=== PATIENT | female | born 1985 | race American Indian/Alaskan Native ===

== ENCOUNTER 2017-06-21 05:49 | Day surgery (SDC) | payer MEDICAID ==
[2017-06-06 14:26] VITALS: BMI 32.5
[2017-06-21] MEDS ORDERED: Clindamycin 600mg/50ml NS 600 MG/50 ML BAG IVPB ONE (07:28)
[2017-06-21] MEDS ORDERED: Lidocaine 2% w Epi 1:100,000 Inj IJ ONE (07:29)
[2017-06-21] MEDS ORDERED: EPINEPHrine 1:1000 Nasal Sol(30mL) ONE ×2 (07:29→08:55)
[2017-06-21] MEDS ORDERED: Lactated Ringer's 1,000 ML IV ONE ×2 (07:45→09:17)
[2017-06-21] MEDS ORDERED: Midazolam 2 MG/2 ML VIAL ONE (07:49)
[2017-06-21] MEDS ORDERED: Propofol 10 mg/ml Inj (20 ML) ONE (07:49)
[2017-06-21] MEDS ORDERED: Dextrose 5%/0.45% NS 1,000 ML IV SCH (08:00)
[2017-06-21] MEDS ORDERED: Acetaminophen-Codeine 300/30 mg Tab PO PRN (08:00)
[2017-06-21] MEDS ORDERED: Rocuronium 10 mg/ml (5 ml) ONE (08:11)
[2017-06-21] MEDS ORDERED: Neostigmine Methylsulfate 3mg/3ml Syringe IV ONE (09:16)
[2017-06-21] MEDS: HYDROmorphone 0.5 mg/0.5 ml ISec IVP PRN ×2 (09:45→10:15)
[2017-06-21] MEDS ORDERED: Albuterol 0.083% Inhal Sol (2.5 mg/3 mL) UD INH PRN (10:00)
[2017-06-21] MEDS ORDERED: Dexamethasone 4 mg/1 ml IVP PRN (10:00)
[2017-06-21 12:12] VITALS: BP 144/81; PULSE 73; RESP 18; TEMP 98; O2SAT 98
--- NOTE | 2017-06-21 17:34 | OP ---
PROCEDURE DATE: 06/21/2017 PREOPERATIVE DIAGNOSES: Sinusitis and nasal polyposis. POSTOPERATIVE DIAGNOSES: Sinusitis and nasal polyposis. PROCEDURE: Endoscopic bilateral maxillary antrostomy, endoscopic bilateral ethmoidectomy, endoscopic bilateral frontal sinusotomy, endoscopic sphenoidotomy, and left nasal turbinate reduction, endoscopic. SURGEON: Tomas Fritz MD SIGNIFICANT FINDINGS: Nasal polyps noted in ethmoid sinuses, maxillary antrum stenosed by polyps on both sides, frontal recess stenosed on both sides. DESCRIPTION OF PROCEDURE: The patient was brought into the room, placed in the supine position, anesthesia was initiated through an ET tube. Navigation was set up and used throughout the case in order to ensure that the skull base and orbit were not entered. Adrenaline soaked pledgets were inserted into the nasal cavity that remained there for 5 minutes and removed. The patient was draped in the usual manner. The 0-degree scope was inserted into the left nasal cavity. Polyps were noted emanating from the middle meatus and injected with lidocaine with epinephrine. The debrider was used to debride the polyps emanating from the middle meatus. The uncinate process was medialized using a freer elevator and removed using the debrider. A debrider was used to enter the ethmoid bulla inferomedially. Dissections were done posteriorly to the basal lamella, then anteriorly and superiorly until the ethmoid bulla was removed. The basal lamella was entered. Posterior ethmoid cells were entered and opened, skull base was identified and followed anteriorly all the way to the area of the anterior ethmoid air cells. The frontal recess was noted to be stenosed and opened using forceps. The sphenoid antrum was noted to be stenosed and opened using forceps and maxillary antrum was noted to be stenosed and opened using forceps. Attention was turned to the other side. The polyps were noted to be emanating from the middle meatus and injected with lidocaine with epinephrine. They were then removed with the debrider. The uncinate process was medialized using freer elevator and removed. The debrider was used to enter the ethmoid bulla inferomedially going posteriorly to the basal lamella, then anteriorly and superiorly until the ethmoid bulla was removed. The basal lamella was entered. The posterior ethmoid cells were entered and opened. The skull base was identified and followed anteriorly all the way to the area of the anterior ethmoid air cells. The frontal recess was noted to be stenosed and opened using forceps. The sphenoid antrum was noted to be stenosed and opened using forceps. Maxillary antrum was noted to stenosed and opened using forceps. Bleeding was controlled using adrenaline soaked pledgets and suction cautery. At that point, it was noted that left middle turbinate was floppy and had no integrity, therefore it was reduced in size using a debrider. A suction cautery was used to control the bleeding. A splint was placed on the right. The patient was taken off anesthesia and taken to recovery room in a stable manner. Tomas Fritz MD MTDD
== END 2017-06-21 13:44 | disposition home or self-care (01) ==
LOC: C.SDS 05:49
PROVIDERS: ATTEND Otolaryngology
DX: J32.0 Chronic maxillary sinusitis (principal); J32.1 Chronic frontal sinusitis; J32.2 Chronic ethmoidal sinusitis
CPT/HCPCS: 30140; 31254; 31256; 31287; 88304; J1170; J2001; J2250; J2405; J2704; J2710; J2765; J3010; J7120

== ENCOUNTER 2018-05-06 05:26 | Emergency (ER) | payer SELFPAY ==
[2018-05-06 05:27] VITALS: BMI 32.5
--- NOTE | 2018-05-06 05:38 | C.PDOC ---
History Of Present Illness 32 year old female presents to the ED c/o right shoulder pain. Patient states she had previous shoulder dislocations and tonight she felt her shoulder pop out and she popped it back in. Patient's right shoulder is in place right now. Patient denies injury, fall, trauma, weakness, numbness, CP, SOB. Time Seen by Provider: 05/06/18 05:36 Chief Complaint (Nursing): Upper Extremity Problem/Injury Past Medical History Vital Signs: Last Vital Signs Temp 98.1 F 05/06/18 05:34 Pulse 86 05/06/18 05:34 Resp 16 05/06/18 05:34 BP 134/85 05/06/18 05:34 Pulse Ox 97 05/06/18 05:38 - Medical History PMH: Asthma, Fractures (RT WRIST/CASTED) Denies: Chronic Kidney Disease - Social History Hx Alcohol Use: Yes Hx Substance Use: No ED Course And Treatment O2 Sat by Pulse Oximetry: 97 Disposition - Disposition Forms: [employer] (Macedonian)
--- NOTE | 2018-05-06 05:39 | C.PDOC ---
History Of Present Illness 32 year old female presents to the ED c/o right shoulder pain. Patient states she had previous shoulder dislocations and tonight she felt her shoulder pop out and she popped it back in. Patient's right shoulder is in place right now. Patient denies injury, fall, trauma, weakness, numbness, CP, SOB. Time Seen by Provider: 05/06/18 05:36 Chief Complaint (Nursing): Upper Extremity Problem/Injury History Per: Patient History/Exam Limitations: no limitations Onset/Duration Of Symptoms: Hrs Current Symptoms Are (Timing): Still Present Quality: "Pain" Recent travel outside of the [place]: No Additional History Per: Patient Past Medical History Reviewed: Historical Data, Nursing Documentation, Vital Signs Vital Signs: Last Vital Signs Temp 98.1 F 05/06/18 05:34 Pulse 70 05/06/18 05:49 Resp 14 05/06/18 05:49 BP 130/80 05/06/18 05:49 Pulse Ox 98 05/06/18 05:49 - Medical History PMH: Asthma, Fractures (RT WRIST/CASTED) Denies: Chronic Kidney Disease Surgical History: No Surg Hx Family History: States: Unknown Family Hx - Social History Hx Alcohol Use: Yes Hx Substance Use: No Review Of Systems Constitutional: Negative for: Fever, Chills Cardiovascular: Negative for: Chest Pain Respiratory: Negative for: Shortness of Breath Gastrointestinal: Negative for: Nausea, Vomiting Musculoskeletal: Positive for: Shoulder Pain Neurological: Negative for: Weakness, Numbness Physical Exam - Physical Exam Appears: Non-toxic, No Acute Distress Skin: Warm, Dry Head: Normacephalic Eye(s): bilateral: Normal Inspection Neck: Supple Chest: Symmetrical Cardiovascular: Rhythm Regular Respiratory: Normal Breath Sounds, No Rales, No Rhonchi, No Wheezing Extremity: Normal ROM, No Tenderness, Capillary Refill (< 2 seconds), No Deformity, No Swelling Pulses: Left Radial: Normal, Right Radial: Normal Neurological/Psych: Oriented x3, Normal Speech, Normal Motor, Normal Sensation Gait: Steady ED Course And Treatment O2 Sat by Pulse Oximetry: 97 (On RA) Pulse Ox Interpretation: Normal Reevaluation Time: 06:10 Reassessment Condition: Improved Disposition Counseled Patient/Family Regarding: Studies Performed, Diagnosis, Need For Followup - Disposition Referrals: Phillip Moore III, MD [Staff Provider] - Disposition: HOME/ ROUTINE Disposition Time: 05:36 Condition: FAIR Instructions: Shoulder Sprain (DC) Forms: [facility] (Belarusian), Work Excuse - Clinical Impression Clinical Impression: Dislocated shoulder, Shoulder pain, right - Scribe Statement The provider has reviewed the documentation as recorded by the Scribe Abraham Herrmann All medical record entries made by the Scribe were at my direction and personally dictated by me. I have reviewed the chart and agree that the record accurately reflects my personal performance of the history, physical exam, medical decision making, and the department course for this patient. I have also personally directed, reviewed, and agree with the discharge instructions and disposition.
[2018-05-06 05:41] VITALS: TEMP 98.1
[2018-05-06 05:50] VITALS: BP 130/80; PULSE 70; RESP 14
[2018-05-06 06:10] VITALS: O2SAT 97
== END 2018-05-06 05:50 | disposition home or self-care (01) ==
LOC: C.ER 05:26
DX: S43.004A Unspecified dislocation of right shoulder joint, initial encounter (principal); X58.XXXA Exposure to other specified factors, initial encounter; M25.511 Pain in right shoulder